=== PATIENT | female | born 1930 | race Caucasian/White ===

== ENCOUNTER 2016-08-02 18:25 | Inpatient (IN) | payer MEDICARE, BC ==
[~2016-08-02] VITALS: Ht 162.6 cm; Wt 47.8 kg
--- NOTE | 2016-08-02 18:41 | NUR ---
Pt states she is currently not taking any medications at home.
[2016-08-02] MEDS ORDERED: IV NORMAL SALINE 500 ML BAG IV ONE (18:45)
[2016-08-02] MEDS ORDERED: DIAZEPAM 5 MG TABLET ONE (19:14)
[2016-08-02] MEDS ORDERED: DIAZEPAM 2 MG TABLET PO ONE (19:15)
[2016-08-02 19:46] LABS: ACETONE, SERUM SMALL (NEGATIVE)
[2016-08-02 19:49] LABS: BASOPHILS % (AUTO) 0.5 % (0.0-2.0); EOSINOPHILS % (AUTO) 0.3 % (0.0-7.0); HEMATOCRIT 37.3 % (37.0-47.0); HEMOGLOBIN 12.8 g/dL (12.0-16.0); LYMPHOCYTES # (AUTO) 1.2 K/uL (0.8-4.8); LYMPHOCYTES % (AUTO) 13.2 % (20.5-51.5); MEAN CORPUSCULAR HEMOGLOBIN 32.6 uug (27.0-31.0); MEAN CORPUSCULAR HGB CONC 34 g/dL (32.0-37.0); MEAN CORPUSCULAR VOLUME 95.1 fL (81.0-99.0); MONOCYTES # (AUTO) 0.5 K/uL (0.1-1.30); MONOCYTES % (AUTO) 5.9 % (0.0-11.0); NEUTROPHILS # (AUTO) 7.5 K/uL (1.8-8.9); NEUTROPHILS % (AUTO) 80.1 % (38.5-71.5); PLATELET COUNT (AUTO) 153 K/uL (150-450); RED BLOOD CELL COUNT(AUTO) 3.92 MIL/uL (4.20-5.40); RED CELL DISTRIBUTION WIDTH 14.5 % (11.5-14.5); WHITE BLOOD COUNT (AUTO) 9.2 K/uL (4.0-11.2)
[2016-08-02 19:50] LABS: POTASSIUM 3.5 mmol/L (3.5-5.1)
[2016-08-02 20:03] LABS: MAGNESIUM 1.7 mg/dL (1.8-2.4)
[2016-08-02] MEDS ORDERED: IV D5W-0.45% NS +20 KCL 1,000 ML IV ONE (20:47)
[2016-08-02] MEDS ORDERED: POTASSIUM CHLORIDE 20 MEQ in IV NS 1000 ML 1,000 ML IV PRN (21:45)
[2016-08-02] MEDS ORDERED: ONDANSETRON 4 MG/2 ML VIAL IV PRN (21:45)
[2016-08-02] MEDS ORDERED: ZOLPIDEM 5 MG TABLET PO PRN (21:45)
[2016-08-02] MEDS ORDERED: MORPHINE SULFATE 2 MG/1 ML DISP.SYRIN IV PRN (21:45)
[2016-08-02] MEDS ORDERED: LORAZEPAM 2 MG/1 ML VIAL IV PRN (21:45)
--- NOTE | 2016-08-02 21:45 | NUR ---
RECEIVED PATIENT VIA GURNEY FROM ER. PATIENT IS A/OX3. DENIES ANY THOUGHTS OR FEELINGS OF SUICIDE OR SELF HARM. VERY PLEASANT WHEN APPROACHED. ASKING FOR FOOD TO EAT. VSS. IVF INFUSING WELL TO RIGHT FA #20 GAUGE. NO RESP. DISTRESS NOTED. ORIENTED PATIENT TO ROOM AND CALL LIGHT. 1:1 SITTER AT BEDSIDE FOR SAFETY. BED ALARM ON. CALL LIGHT IN REACH. ALL NEEDS ATTENDED. WILL CONTINUE TO MONITOR.
[2016-08-02 22:00] LABS: *BILIRUBIN,URIN NEGATIVE (NEGATIVE); *BLOOD, URINE Trace-intact (NEGATIVE); *CLARITY,URINE CLEAR (CLEAR); *COLOR,URINE YELLOW (YELLOW); *KETONES,URINE NEGATIVE (NEGATIVE); *PROTEIN,URINE NEGATIVE (NEGATIVE); *UROBILINOGEN,URINE 0.2 E.U./dl (NORMAL); LEUKOCYTE ESTERASE ,URINE NEGATIVE (NEGATIVE); NITRITE, URINE NEGATIVE (NEGATIVE); PH,URINE 6.5 (5.0-8.0); UGLUCOSE NEGATIVE (NEGATIVE)
[2016-08-02] MEDS ORDERED: POTASSIUM CHLORIDE 20 MEQ in IV D5/ 0.9% NACL 1,000 ML IV PRN (22:00)
[2016-08-02 22:10] VITALS: BP 105/51
[2016-08-02 22:10] LABS: BACTERIA,URINE FEW /HPF (NONE SEEN); RBC,URINE 0-3 /HPF (0-3); SQUAMOUS EPITHELIAL CELL,UR MODERATE /HPF (NONE SEEN); WBC,URINE 0-3 /HPF (0-3)
[2016-08-02] MEDS ORDERED: LORAZEPAM 2 MG/1 ML VIAL ONE (23:36)
[2016-08-03] MEDS ORDERED: KETOROLAC TROMETHAMINE 15 MG INJ IVP PRN
[2016-08-03 04:56] VITALS: BP 107/57
--- NOTE | 2016-08-03 05:00 | NUR ---
PATIENT AWAKE IN BED. C/O PAIN. PATIENT GIVEN TORADOL 15MG IVP PER LIFELINE REPRESENTATIVES. VSS. SITTER AT BEDSIDE. WILL CONTINUE TO MONITOR.
[2016-08-03] MEDS ORDERED: KETOROLAC TROMETHAMINE 15 MG INJ ONE (05:06)
--- NOTE | 2016-08-03 06:44 | NUR ---
PATIENT AWAKE IN BED. SLEPT WELL THROUGHOUT THE NIGHT. PATIENT IS VERY ELATED THIS MORNING. SITTING AT BEDSIDE, LAUGHING NON-STOP FOR NO APPARENT REASON. SITTER AT BEDSIDE FOR SAFETY. WILL CONTINUE TO MONITOR.
--- NOTE | 2016-08-03 07:30 | NUR ---
Awake, alert, oriented x 3, elated and laughing, cooperative. 1:1 sitter at bedside. IVF infusing.
[2016-08-03 08:00] VITALS: BP 106/59
[2016-08-03] MEDS: ACETAMINOPHEN 325 MG TABLET PO PRN (08:43)
[2016-08-03] MEDS: PANTOPRAZOLE SODIUM 40 MG TABLET.DR PO SCH (08:43)
[2016-08-03 09:41] LABS: EOSINOPHILS # (AUTO) 0.1 K/uL (0.0-0.7); EOSINOPHILS % (AUTO) 0.6 % (0.0-7.0); HEMATOCRIT 40.7 % (37.0-47.0); LYMPHOCYTES # (AUTO) 0.8 K/uL (0.8-4.8); LYMPHOCYTES % (AUTO) 7.3 % (20.5-51.5); MEAN CORPUSCULAR HEMOGLOBIN 33.1 uug (27.0-31.0); MEAN CORPUSCULAR HGB CONC 34 g/dL (32.0-37.0); MEAN CORPUSCULAR VOLUME 96.3 fL (81.0-99.0); MONOCYTES # (AUTO) 0.5 K/uL (0.1-1.30); MONOCYTES % (AUTO) 4.4 % (0.0-11.0); NEUTROPHILS # (AUTO) 9.4 K/uL (1.8-8.9); NEUTROPHILS % (AUTO) 87.7 % (38.5-71.5); PLATELET COUNT (AUTO) 193 K/uL (150-450); RED BLOOD CELL COUNT(AUTO) 4.22 MIL/uL (4.20-5.40); RED CELL DISTRIBUTION WIDTH 14.6 % (11.5-14.5); WHITE BLOOD COUNT (AUTO) 10.8 K/uL (4.0-11.2)
[2016-08-03 09:57] LABS: ALBUMIN 3.7 g/dL (3.4-5.0); BILIRUBIN,TOTAL 0.9 mg/dL (0.2-1.0); CALCIUM 8.9 mg/dL (8.5-10.1); CREATININE 1.6 mg/dL (0.6-1.3); MAGNESIUM 1.7 mg/dL (1.8-2.4); PHOSPHOROUS 1.2 mg/dL (2.5-4.9); POTASSIUM 4.4 mmol/L (3.5-5.1)
[2016-08-03 10:07] LABS: THYROID STIMULATING HORMONE 15.118 mIU/mL (0.358-3.740)
[2016-08-03] MEDS ORDERED: IV D5 1/2 NS 1000 ML 1,000 ML IV PRN (10:30)
[2016-08-03] MEDS ORDERED: MAGNESIUM OXIDE 400 MG TABLET PO ONE (10:30)
[2016-08-03] MEDS ORDERED: NEUTRA PHOS PACKET PO ONE (10:30)
[2016-08-03 11:55] VITALS: BP 106/59
[2016-08-03] MEDS ORDERED: DIAZEPAM 10 MG TABLET PO PRN (12:30)
[2016-08-03] MEDS ORDERED: METHADONE HCL 10 MG TABLET PO PRN (12:30)
--- NOTE | 2016-08-03 12:49 | NUR ---
PHARMACY NOTE(REVIEW OF [facility] [place]IENT) She is an 86 yo lady from home admitted on 08/02/16 due to failure to cope and suicidal ideation. 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 Will clarify as moderate to severe pain. No dose was given so far. Patient with chronic kidney diseases stage (crcl <30ml/min)may increase risk of acute kidney injury and further decline of renal function. Patient' renal fuction is acutely declined(scr 1.0 yesterday but today is 1.6 estimated Clcr is 19.75ml/min),possibly due to dehydration. She is started on IV fluid since last night. Will monitor renal function. Syntroid 25mcg po daily for hypothyroidism. Ativan 0.5mg IV q6h prn anxiety/agitation:High risk medication. Older adults have increased sensitivity to benzodiazepines and decreased metabolism of long-acting agents. In general, all benzodiazepines increase risk of cognitive impairment, delirium, falls, fractures, and motor vehicle accidents in older patients. May be appropriate for seizure disorders, rapid eye movement sleep disorders, benzodiazepine withdrawal, ethanol withdrawal, severe generalized anxiety disorder, periprocedural anesthesia, end-of-life care. Patient is on as needed basis only with short term for anxiety. No dose given. Zofran 4mg IV q6h prn n/v Protonix 40mg po daily:GI prophylaxis Avoid scheduled use for >8 weeks unless for high-risk patients (e.g. oral corticosteroids or chronic NSAID use), erosive esophagitis, Pina's esophagitis,, pathological hypersecretory condition, or demonstrated need for maintenance treatment (e.g., due to failure of drug discontinuation trial or H2 blockers) Risk of Clostridium difficile infection. She is on short term for GI prophylaxis. Ambien 5mg po hs prn sleep: High risk medication. Avoid chronic use >90 days. consider 5mg for elderly patient. On short term use. Nurse will do non pharmaceutical measure first before administering med. Recommendation: Will monitor renal function to evaluate the appropriateness of Toradol. If renal function stays declined, will ask MD to d/c.
--- NOTE | 2016-08-03 13:31 | NUR ---
C/O PAIN AND ANXIETY, VALIUM GIVEN ORDERED, PT ACCEPTED BECAUSE MED WAS MADE BY COLLATERAL CLERK ACCEPTABLE TO HER BUT REFUSED METHADONE DID NOT AGREE TO COLLATERAL CLERK. PT ACCEPTED THAT THERE IS NO OTHER PAIN MED AT THIS TIME SHE ALSO REFUSES TORADOL.
[2016-08-03] MEDS ORDERED: DIAZ10TA PO (13:54)
[2016-08-03] MEDS ORDERED: METH10TA2 PO (13:54)
[2016-08-03] MEDS: ARIPIPRAZOLE 2 MG TABLET PO SCH (14:45)
[2016-08-03] MEDS ORDERED: DULOXETINE 30 MG CAPSULE.DR PO SCH (14:45)
[2016-08-03 16:21] VITALS: BP 103/63
--- NOTE | 2016-08-03 17:00 | NUR ---
PT REFUSED 1445 DOSE OF ABILIFY ORDERED BY PSYCHIATRIST DESPITE EXPLAINED RISKS AND BENEFITS STATING, "I'M NOT TAKING ANY NEW MEDICATION"
--- NOTE | 2016-08-03 19:00 | NUR ---
REFUSED DINNER AT 1700. SUSPICIOUS OF CARE.
--- NOTE | 2016-08-03 20:00 | NUR ---
PATIENT AWAKE IN BED. PATIENT IS A/O X2. VERY HOSTILE AND AGITATED WHEN APPROACHED. APPEARS VERY SUSPICIOUS AND PARANOID OF SURROUNDINGS. VSS. SITTER AT BEDSIDE FOR SAFETY. BED ALARM ON. CALL LIGHT IN REACH. ALL NEEDS ATTENDED. WILL CONTINUE TO MONITOR.
[2016-08-03] MEDS: DOCUSATE SODIUM 100 MG CAPSULE PO SCH ×2 (20:17→20:34)
[2016-08-03] MEDS: SIMVASTATIN 20 MG TABLET PO SCH ×2 (20:17→20:34)
[2016-08-03 20:22] VITALS: BP 104/63
--- NOTE | 2016-08-03 20:30 | NUR ---
PATIENTS IV NOTED TO BE DISLODGED AND LEAKING. PATIENT IS AGITATED AND UPSET THAT SHE IS GETTING IVF. HEPLOCK REMOVED. PATIENT REFUSED FOR IV TO BE RESTARTED. PATIENT INFORMED THAT FLUIDS NEED TO BE INFUSING. PATIENT REFUSED. NOTIFIED DR. FERRER. NO NEW ORDERS AT THIS TIME. WILL CONTINUE TO MONITOR.
--- NOTE | 2016-08-03 22:45 | NUR ---
PATIENT AWAKE IN BED. VERY ANGRY AND HOSTILE WHEN APPROACHED. PATIENT IS SUSPICIOUS AND PARANOID TOWARDS STAFF AND KEEPS SAYING, " YOU ARE ALL TRYING TO KILL ME." CHARGE NURSE AT BEDSIDE TO SPEAK WITH PATIENT REGARDING INSERTING IV AND PATIENT BECAME ANGRY WITH CHARGE NURSE AND THREW THE CALL LIGHT. CALLED OUT TO DR. SELLERS FOR FURTHER ORDERS. MADE AWARE THAT PATIENT IS REFUSING PO MEDS AT THIS TIME. RECEIVED NEW ORDERS.
--- NOTE | 2016-08-03 22:55 | NUR ---
PATIENT GIVEN ZYPREXA 5MG IM PER HEALTH INFORMATICS SPECIALIST ORDERED FOR AGITATION. 1:1 SITTER AT BEDSIDE. WILL CONTINUE TO MONITOR.
[2016-08-03] MEDS ORDERED: OLANZAPINE 10 MG VIAL IM ONE (23:00)
--- NOTE | 2016-08-04 05:55 | NUR ---
PATIENT ASLEEP IN BED. EASILY AROUSABLE. SLEPT AT INTERVALS. PATIENT BECOMES EASILY AGITATED. PATIENT STILL REFUSING FOR IV HEPLOCK AND IVF TO BE RESTARTED. REFUSED AM VITAL SIGNS. SITTER AT BEDSIDE FOR SAFETY. BED ALARM ON. CALL LIGHT IN REACH. ALL NEEDS ATTENDED. WILL CONTINUE TO MONITOR.
[2016-08-04] MEDS: LEVOTHYROXINE SODIUM 25 MCG TABLET PO SCH (06:03)
[2016-08-04] MEDS: PANTOPRAZOLE SODIUM 40 MG TABLET.DR PO SCH (06:03)
--- NOTE | 2016-08-04 06:05 | NUR ---
PATIENT REFUSED AM MEDICATIONS. PATIENT IS VERY SUSPICIOUS REGARDING MEDICATIONS AND FIRMLY ASKED, "WHAT RESIDENTIAL CHILD CARE COUNSELOR ARE THE MEDS FROM?" PATIENT STATED THAT "THESE MEDS ARE FROM [place] AND ARE POISONED." PATIENT EDUCATED REGARDING MEDICATION BUT BECAME MORE AGITATED WITH TEACHING. AMBULANCE ATTENDANT NOTIFIED. WILL CONTINUE TO MONITOR. ALL NEEDS ATTENDED.
--- NOTE | 2016-08-04 06:29 | NUR ---
PATIENT REFUSED AM LABS. STATIONARY STEAM ENGINEER WILL COME BACK TO ATTEMPT LAB DRAW.
[2016-08-04 08:19] LABS: BASOPHILS % (AUTO) 0.3 % (0.0-2.0); EOSINOPHILS # (AUTO) 0.1 K/uL (0.0-0.7); EOSINOPHILS % (AUTO) 1.9 % (0.0-7.0); HEMATOCRIT 35.2 % (37.0-47.0); LYMPHOCYTES # (AUTO) 1.5 K/uL (0.8-4.8); LYMPHOCYTES % (AUTO) 20.8 % (20.5-51.5); MEAN CORPUSCULAR HEMOGLOBIN 33.2 uug (27.0-31.0); MEAN CORPUSCULAR HGB CONC 34 g/dL (32.0-37.0); MEAN CORPUSCULAR VOLUME 97.3 fL (81.0-99.0); MONOCYTES # (AUTO) 0.5 K/uL (0.1-1.30); MONOCYTES % (AUTO) 6.1 % (0.0-11.0); NEUTROPHILS # (AUTO) 5.3 K/uL (1.8-8.9); NEUTROPHILS % (AUTO) 70.9 % (38.5-71.5); PLATELET COUNT (AUTO) 157 K/uL (150-450); RED BLOOD CELL COUNT(AUTO) 3.62 MIL/uL (4.20-5.40); RED CELL DISTRIBUTION WIDTH 14.9 % (11.5-14.5); WHITE BLOOD COUNT (AUTO) 7.4 K/uL (4.0-11.2)
[2016-08-04 08:22] LABS: ALBUMIN 2.9 g/dL (3.4-5.0); BILIRUBIN,TOTAL 0.7 mg/dL (0.2-1.0); CALCIUM 8.4 mg/dL (8.5-10.1); MAGNESIUM 1.7 mg/dL (1.8-2.4); TOTAL PROTEIN, SERUM 5.5 g/dL (6.4-8.2)
[2016-08-04] MEDS: ARIPIPRAZOLE 2 MG TABLET PO SCH (09:00)
[2016-08-04 11:03] VITALS: BP 110/65
[2016-08-04] MEDS ORDERED: NEUTRA PHOS PACKET PO ONE (14:45)
[2016-08-04] MEDS ORDERED: MAGNESIUM SULFATE/D5W 100 ML IV SCH (15:00)
[2016-08-04 15:09] VITALS: BP 109/62
[2016-08-04] MEDS ORDERED: MAGNESIUM OXIDE 400 MG TABLET PO ONE (16:00)
--- NOTE | 2016-08-04 17:46 | NUR ---
PT REFUSED MORNING MEDICATIONS, HOWEVER TOOK REPLACEMENT MEDICATIONS (MG AND NEUTRO PHOS) ASKING FOR COLACE, TOLD PT IT IS ORDERED FOR NIGHT MEDICATIONS. PT ATE 100% OF ALL MEALS AND DID NOT VOICE ANY SUICIDAL IDEATIONS. ALL SAFETY AND COMFORT MEASURES MAINTAINED THROUGHOUT SHIFT, CALL LIGHT IN REACH
[2016-08-04 20:00] VITALS: BP 101/59
[2016-08-04] MEDS: DOCUSATE SODIUM 100 MG CAPSULE PO SCH (20:23)
[2016-08-04] MEDS: SIMVASTATIN 20 MG TABLET PO SCH (20:24)
--- NOTE | 2016-08-04 21:00 | NUR ---
PATIENT AWAKE,ALERT,SUSPICIOUS OF CARE, TOOK ONLY COLACE,REFUSED ALL OTHER MEDICATIONS INCLUDES METHADONE FOR PAIN CONTROL ,BECAUSE NOT FROM SPECIFIC BI DEVELOPER THAT ACCEPTABLE TO HER.CONTINUE CLOSELY MONITOR 1:1 SITTER, PATIENT DENIES SUICIDAL IDEATION.
[2016-08-05 05:31] VITALS: BP 102/61
--- NOTE | 2016-08-05 06:00 | NUR ---
PATIENT SLEPT ABOUT 6 HRS,SOMETIMES MOANING IN PAIN, BUT REFUSED PAIN MEDS.
[2016-08-05] MEDS: PANTOPRAZOLE SODIUM 40 MG TABLET.DR PO SCH (06:36)
[2016-08-05] MEDS: LEVOTHYROXINE SODIUM 25 MCG TABLET PO SCH (06:36)
[2016-08-05 06:59] LABS: CALCIUM 8.5 mg/dL (8.5-10.1); MAGNESIUM 1.6 mg/dL (1.8-2.4); PHOSPHOROUS 1.9 mg/dL (2.5-4.9); POTASSIUM 4.1 mmol/L (3.5-5.1)
--- NOTE | 2016-08-05 07:10 | NUR ---
PATIENT RECEIVED IN ROOM RESTING WITH EYES CLOSED IN NO ACUTE DISTRESS. CONTINUES ON 1:1 SITTER AT BEDSIDE FOR SAFETY.
[2016-08-05] MEDS: ARIPIPRAZOLE 2 MG TABLET PO SCH (08:08)
[2016-08-05] MEDS: ACETAMINOPHEN 325 MG TABLET PO PRN (08:56)
[2016-08-05 11:04] VITALS: BP 112/67
[2016-08-05] MEDS ORDERED: DIAZ10TA4 PO (11:34)
[2016-08-05] MEDS ORDERED: ARIP2TAB9 PO (11:34)
[2016-08-05] MEDS ORDERED: SIMV20TA6 PO (11:34)
[2016-08-05] MEDS ORDERED: LEVO25TA9 PO (11:34)
[2016-08-05] MEDS ORDERED: MAGNESIUM SULFATE/D5W 100 ML IV SCH (12:15)
--- NOTE | 2016-08-05 14:01 | NUR ---
The patient will be discharged today to [facility] [ ; [address] [place], [place] [id number]] via [facility]. Allison, admission from [facility], evaluated the patient in person and she confirmed that they are able to provide the care she needed. The patient also agreed with her discharge plan. Tried to contact her son, Charles, but his phone number was incorrect and the patient stated that they have not been in contact for months. Called [facility] [ ] and spoke to Melissa to find out if they have any other information about any family members or friends but they do not have any. She will try to research the case more and call back if she finds any other information. Updated her RN, Ela, on her discharge and she will call the facility for the report.
[2016-08-05 15:08] VITALS: BP 101/67
[2016-08-05] MEDS ORDERED: NEUTRA PHOS PACKET PO ONE (15:15)
--- NOTE | 2016-08-05 17:30 | NUR ---
DISCHARGING PATIENT TO [facility] IN A STABLE CONDITION. SBAR REPORT GIVEN TO LORI ADAM AT SNF. DENIED PAIN. VSS. DISCHARGE INSTRUCTIONS PROVIDED. LIST OF BELONGINGS SIGNED AND ALL WAS TAKEN. PATIENT LEAVING VIA AMBULANCE ACCOMPANIED BY AMBULANCE STAFF.
== END 2016-08-05 17:30 | DRG 683 ==
LOC: ER 18:28 → MED 21:32
PROVIDERS: ADMIT Internal Medicine; ATTEND Internal Medicine
DX: N17.0 Acute kidney failure with tubular necrosis (principal); E46 Unspecified protein-calorie malnutrition; E87.2 Acidosis; F33.3 Major depressive disorder, recurrent, severe with psychotic symptoms; R45.851 Suicidal ideations; Z68.1 Body mass index [BMI] 19.9 or less, adult; F11.20 Opioid dependence, uncomplicated; R62.7 Adult failure to thrive; E83.42 Hypomagnesemia; D64.9 Anemia, unspecified; E03.9 Hypothyroidism, unspecified; E16.2 Hypoglycemia, unspecified; E78.5 Hyperlipidemia, unspecified; E86.0 Dehydration; G89.4 Chronic pain syndrome; F29 Unspecified psychosis not due to a substance or known physiological condition; Z87.891 Personal history of nicotine dependence; Z90.49 Acquired absence of other specified parts of digestive tract; M79.7 Fibromyalgia; K59.00 Constipation, unspecified; J44.9 Chronic obstructive pulmonary disease, unspecified; M62.84 Sarcopenia; M19.90 Unspecified osteoarthritis, unspecified site; Z66 Do not resuscitate
CPT/HCPCS: 36415; 70030-TC; 71010; 83605; 83735; 84100; 84443; 85025; 87086; 92506; 93005; 97001; 97003; J1885; J2060; J2358; J3480; J3490; J7040; J7042